=== PATIENT | female | born 1925 | race Two or more races ===

== ENCOUNTER 2017-04-26 11:13 | Inpatient (IN) | payer OTHER ==
[~2017-04-26] VITALS: Ht 157.5 cm; Wt 40.8 kg
[~2017-04-26 11:13] MED LIST: DICLOFENAC SODI50 MG PO; NEURONTIN300 MG; VALSARTAN80 MG
[2017-04-26] MEDS ORDERED: ASA-EC81 MG PO (19:06)
[2017-04-26] MEDS ORDERED: NEURONTIN300 MG PO (19:07)
[2017-04-26] MEDS ORDERED: VALSARTAN80 MG PO (19:07)
[2017-05-03] MEDS ORDERED: Neurin-Sl Tablet Sl SL (13:01)
[2017-05-03] MEDS ORDERED: BISAC-EVAC10 MG RECTAL (13:01)
[2017-05-03] MEDS ORDERED: ASA-EC81 MG PO (13:01)
[2017-05-03] MEDS ORDERED: VALSARTAN80 MG PO (13:01)
[2017-05-03] MEDS ORDERED: NEURONTIN300 MG PO (13:01)
== END 2017-05-03 15:00 | disposition home or self-care (01) | DRG 872 ==
LOC: ER 11:13 → MEDJ 19:34
PROC: BT43ZZZ Ultrasonography of Bilateral Kidneys (ICD-10-PCS; principal; 2017-04-26)
PROC: B246ZZZ Ultrasonography of Right and Left Heart (ICD-10-PCS; 2017-04-26)
DX: A41.9 Sepsis, unspecified organism (principal); N39.0 Urinary tract infection, site not specified; B96.1 Klebsiella pneumoniae [K. pneumoniae] as the cause of diseases classified elsewhere; E86.0 Dehydration; K59.09 Other constipation; R55 Syncope and collapse; I10 Essential (primary) hypertension; G30.8 Other Alzheimer's disease; F02.80 Dementia in other diseases classified elsewhere, unspecified severity, without behavioral disturbance, psychotic disturbance, mood disturbance, and anxiety; Z74.01 Bed confinement status; I35.1 Nonrheumatic aortic (valve) insufficiency